=== PATIENT | female | born 1990 | race Two or more races ===

== ENCOUNTER 2018-05-05 07:58 | Inpatient (IN) ==
[2018-05-05] MEDS ORDERED: Naloxone Inj 0.4 MG/ML Vial IV.PUSH PRN ×2 (08:40→13:08)
[2018-05-05] MEDS ORDERED: fentaNYL Citrate Inj 100 MCG/2 ML Ampul IV.PUSH PRN (08:40)
[2018-05-05] MEDS ORDERED: Sodium Chlor 0.9% Inj 500 ML IV.SIG PRN (08:40)
[2018-05-05] MEDS ORDERED: Oxytocin 30 Units/500ml Premix 30 UNITS/500 ML BAG IV.SIG ONE (08:40)
[2018-05-05] MEDS ORDERED: Sod Chloride 0.9% Inj 1,000 ML IV.CONT PRN (08:40)
--- NOTE | 2018-05-05 08:42 | ED ---
History of Present Illness Primary Care Physician: No Primary Care Physician Chief Complaint: Contraction History of Present Illness: 28-year-old who presents with contractions. She is a patient of Dr. Goldberg. She has been having contractions since 12 AM. Her water broke around 3 AM. She denies any vaginal bleeding. She reports that she is GBS negative. Her has been complicated by anemia in which she did require IV iron infusions weekly. Her last infusion was on Wednesday. OB history: section in 2011 likely due to arrest of labor. Patient reports that she got to 5 cm dilated and then needed to go to a . Past medical history: Anemia of Past surgical history: section in 2011 Medications: IV iron infusions, vitamin Allergies: No known drug allergies Family history: Grandmother with diabetes and hypertension Social history: Denies tobacco use, alcohol use, illicit drug use Weeks Gestation:: 39 Para: 1 : 2 - Inpatient Certification I certify that the inpatient services were ordered in accordance with Medicare regulations governing the order. This includes certification that hospital inpatient services are reasonable and necessary and in the case of services not specified as inpatient-only under 42 CFR 419.22(n), that they are appropriately provided as inpatient services in accordance to with the 2-midnight benchmark under 43 CFR 412.3(e) Review of Systems All other systems reviewed negative except as stated in HPI PMFSH - History History Provided By: Patient - Social History I have reviewed the patient's Social History: Yes - Travel History Recent Travel in the [place] Within the Last 8 Weeks: No Recent Travel Out of the Country Within the Last 8 Weeks: No Medications and Allergies Allergies Allergy/AdvReac Type Severity Reaction Status Date / Time No Known Allergies Allergy Verified 05/05/18 08:19 Home Medications Medication Instructions Recorded Confirmed Type vit,[id number] 1 tab PO DAILY 05/05/18 05/05/18 History [PNV 29-1] Exam Vital signs: Vital Signs 05/05/18 08:11 Temperature 98.9 F Pulse Rate 96 H Respiratory Rate 18 Blood Pressure 134/68 Intake & Output 05/04/18 05/05/18 05/05/18 18:59 06:59 18:59 Weight 191 kg Narrative: GENERAL: Well-nourished, well-developed patient, and distressed when maru. SKIN: Warm and dry. HEAD: Normocephalic and atraumatic. EYES: No scleral icterus. No injection or drainage. ENT: No nasal drainage noted. Mucous membranes pink. Airway patent. NECK: Supple, trachea midline. No JVD. CARDIOVASCULAR: Regular rate and rhythm without murmurs, gallops, or rubs. RESPIRATORY: Breath sounds equal bilaterally. No accessory muscle use. ABDOMEN/GI: Abdomen soft, non-tender, bowel sounds present, no rebound, no guarding Gravid to 39 weeks size Fundal Height: 39 GENITOURINARY: External Genitalia: intact and normal in appearance Cervix: Midline Dilatation: 5 Effacement: 80 Station: -2 Presentation: Vertex Membranes: Ruptured Uterine Contractions: Yes FHT's: Category: 1 Baseline: 140 Reactive: Yes Variability: Moderate Decels: None EXTREMITIES: No cyanosis or edema. BACK: Nontender without obvious deformity. No CVA tenderness. NEUROLOGICAL: Awake and alert. Motor and sensory grossly within normal limits. Five out of 5 muscle strength in all muscle groups. Normal speech. Results - Labs CBC & Chem 7: 05/05/18 08:20 Assessment and Plan - Diagnosis (1) Active labor Status: Acute - Plan 28-year-old who is in active labor. She desires . Patient's cervix is 5-6\80\-2 and heart rate is category 1. -Admit to labor and delivery -Anticipate vaginal delivery -Obtain records from Dr. Goldberg - Attending Attestation The exam, history, and the medical decision-making described in the above note were completed with the assistance of the resident physician. I reviewed and agree with the findings presented. I attest that I had a [id number] encounter with the patient on the same day, and personally performed and documented my assessment and findings in the medical record. Discharge Plan - Physicians Team Primary Care Provider: Primary Care Kane,Sarah Attending Provider: Gloria Goldsmith
[2018-05-05] MEDS ORDERED: Citric Acid/Sodium Citrate Liq 30 ML UDC PO SCH (08:45)
[2018-05-05 08:56] LABS: Baso % (Auto) 0.4 % (0.0-2.0); Hemoglobin 13.7 gm/dL (11.6-15.3); Lymph # (Auto) 1.3 th/mm3 (1.0-4.8); Lymph % (Auto) 11.7 % (9.0-44.0); Mean Corpuscular HGB Conc 34.1 % (32.0-36.0); Mean Corpuscular Hemoglobin 27.2 pg (27.0-34.0); Mean Corpuscular Volume 79.5 fL (80.0-100.0); Mono # (Auto) 0.3 th/mm3 (0.0-0.9); Mono % (Auto) 2.6 % (0.0-8.0); Neut # (Auto) 9.7 th/mm3 (1.8-7.7); Neut % (Auto) 85.3 % (16.0-70.0); Platelet Count 192 th/mm3 (150-450); Red Blood Count 5.03 mil/mm3 (4.00-5.30); Red Cell Distribution Width 22.1 % (11.6-17.2); White Blood Count 11.4 th/mm3 (4.0-11.0)
--- NOTE | 2018-05-05 09:31 | P.HPOB ---
*LIVE* [facility] OB - History and Physical Patient Name: Kelsie Rashid Date of : 89 Patient Status: Inpatient Attending Provider: Gloria Goldsmith Date: 05/05/18 08:41 Initialization Date: 05/05/18 08:41 History of Present Illness Primary Care Physician: No Primary Care Physician Chief Complaint: Contraction History of Present Illness: 28-year-old who presents with contractions. She is a patient of Dr. Goldberg. She has been having contractions since 12 AM. Her water broke around 3 AM. She denies any vaginal bleeding. She reports that she is GBS negative. Her has been complicated by anemia in which she did require IV iron infusions weekly. Her last infusion was on Wednesday. OB history: section in 2011 likely due to arrest of labor. Patient reports that she got to 5 cm dilated and then needed to go to a . Past medical history: Anemia of Past surgical history: section in 2011 Medications: IV iron infusions, vitamin Allergies: No known drug allergies Family history: Grandmother with diabetes and hypertension Social history: Denies tobacco use, alcohol use, illicit drug use Weeks Gestation:: 39 Para: 1 : 2 - Inpatient Certification I certify that the inpatient services were ordered in accordance with Medicare regulations governing the order. This includes certification that hospital inpatient services are reasonable and necessary and in the case of services not specified as inpatient-only under 42 CFR 419.22(n), that they are appropriately provided as inpatient services in accordance to with the 2-midnight benchmark under 43 CFR 412.3(e) Review of Systems All other systems reviewed negative except as stated in HPI PMFSH - History History Provided By: Patient - Social History I have reviewed the patient's Social History: Yes - Travel History Recent Travel in the [place] Within the Last 8 Weeks: No Recent Travel Out of the Country Within the Last 8 Weeks: No Medications and Allergies Allergies Allergy/AdvReac Type Severity Reaction Status Date / Time No Known Allergies Allergy Verified 05/05/18 08:19 Home Medications Medication Instructions Recorded Confirmed Type vit,[id number] 1 tab PO DAILY 05/05/18 05/05/18 History [PNV 29-1] Exam Vital signs: Vital Signs 05/05/18 08:11 Temperature 98.9 F Pulse Rate 96 H Respiratory Rate 18 Blood Pressure 134/68 Intake & Output 05/04/18 05/05/18 05/05/18 18:59 06:59 18:59 Weight 191 kg Narrative: GENERAL: Well-nourished, well-developed patient, and distressed when maru. SKIN: Warm and dry. HEAD: Normocephalic and atraumatic. EYES: No scleral icterus. No injection or drainage. ENT: No nasal drainage noted. Mucous membranes pink. Airway patent. NECK: Supple, trachea midline. No JVD. CARDIOVASCULAR: Regular rate and rhythm without murmurs, gallops, or rubs. RESPIRATORY: Breath sounds equal bilaterally. No accessory muscle use. ABDOMEN/GI: Abdomen soft, non-tender, bowel sounds present, no rebound, no guarding Gravid to 39 weeks size Fundal Height: 39 GENITOURINARY: External Genitalia: intact and normal in appearance Cervix: Midline Dilatation: 5 Effacement: 80 Station: -2 Presentation: Vertex Membranes: Ruptured Uterine Contractions: Yes FHT's: Category: 1 Baseline: 140 Reactive: Yes Variability: Moderate Decels: None EXTREMITIES: No cyanosis or edema. BACK: Nontender without obvious deformity. No CVA tenderness. NEUROLOGICAL: Awake and alert. Motor and sensory grossly within normal limits. Five out of 5 muscle strength in all muscle groups. Normal speech. Results - Labs CBC & Chem 7: 05/05/18 08:20 Assessment and Plan - Diagnosis (1) Active labor Status: Acute - Plan 28-year-old who is in active labor. She desires . Patient's cervix is 5-6\80\-2 and heart rate is category 1. -Admit to labor and delivery -Anticipate vaginal delivery -Obtain records from Dr. Goldberg Attending Attestation The exam, history, and the medical decision-making described in the above note were completed with the assistance of the resident physician. I reviewed and agree with the findings presented. I attest that I had a [id number] encounter with the patient on the same day, and personally performed and documented my assessment and findings in the medical record. Pt seen and examined. Agree with resident note. Discharge Plan - Physicians Team Primary Care Provider: Primary Care Sarah Middleton Attending Provider: Gloria Goldsmith
[2018-05-05] MEDS: fentaNYL Citrate Inj 100 MCG/2 ML Ampul IV.PUSH PRN ×2 (09:41→10:59)
[2018-05-05 09:54] LABS: Bacteria,Urine Moderate /hpf; Bilirubin,Urine Negative (Negative); Clarity,Urine Hazy (Clear); Color,Urine Amber (Yellw/Straw); Glucose,Urine (UA) Negative (Negative); Leukocyte Esterase,Urine Trace (Negative); Mucus,Urine Few /lpf (Occasional); Nitrite,Urine Negative (Negative); Specific Gravity,Urine 1.024 (1.002-1.035); Squamous Epithelial Cell,Urine 3 /hpf (0-5)
[2018-05-05 09:56] LABS: Urobilinogen,Urine 0.2 mg/dL (Less than 2)
[2018-05-05 09:58] LABS: Ictotest,Urine Negative (Negative)
[2018-05-05] MEDS ORDERED: Benzocaine 20% Top Spray 60 ML Can TOPICAL PRN (13:08)
[2018-05-05] MEDS ORDERED: Witch Hazel 50%/Glyderin 12.5% 40 Pad Jar RECTAL PRN (13:08)
[2018-05-05] MEDS ORDERED: Oxytocin 30 Units/500ml Premix 30 UNITS/500 ML BAG IV.CONT PRN (13:08)
[2018-05-05] MEDS ORDERED: Bisacodyl 10 MG Supp RECTAL PRN (13:08)
--- NOTE | 2018-05-05 13:20 | P.OBDELI ---
Weeks Gestation: 39 Patient Started Active Labor: Yes Anesthesia: None Episiotomy: none Vaginal Delivery: Normal, Presentation: Occiput anterior Nuchal Cord: x1 Delayed Cord Clamping (45 sec): Yes Placenta: Spontaneous delivery, Intact, 3 vessel cord Laceration: None Estimated blood loss (mL): 200 Infant: Female Infant Female A Delivery Date: 05/05/18 Infant Delivery Time: 12:41 Weight: 3.295 kg score (1 min): 8 score (5 min): 9
[2018-05-05] MEDS: Acetaminophen 325 MG Tablet PO PRN (13:54)
[2018-05-05] MEDS ORDERED: Measles/Mumps/Rubella Vaccine Inj 0.5 ML Vial SQ ONE (16:00)
[2018-05-05] MEDS ORDERED: Diphtheria/Tetanus/Pertussis Vaccine Inj 0.5 ML Syringe IM ONE (16:00)
[2018-05-05] MEDS: Senna/Docusate Sodium 8.6/50 MG Tablet PO SCH (21:00)
[2018-05-05] MEDS ORDERED: Zolpidem Tartrate 5 MG Tablet PO PRN (21:00)
[2018-05-06] MEDS: Acetaminophen 325 MG Tablet PO PRN ×3 (03:49→18:37)
--- NOTE | 2018-05-06 08:03 | P.PNOB ---
Objective Vital Signs/I&O: Vital Signs 05/05/18 08:11 05/05/18 09:15 05/05/18 09:31 Temperature 98.9 F Pulse Rate 96 H 99 H Respiratory Rate 18 17 Blood Pressure 134/68 131/72 05/05/18 09:45 05/05/18 10:45 05/05/18 11:00 Temperature 98.7 F Pulse Rate Respiratory Rate 19 18 19 Blood Pressure 05/05/18 11:04 05/05/18 12:00 05/05/18 13:00 Temperature Pulse Rate 84 Respiratory Rate 20 18 Blood Pressure 138/87 05/05/18 13:15 05/05/18 13:24 05/05/18 14:08 Temperature 98.8 F Pulse Rate 83 78 Respiratory Rate 16 18 Blood Pressure 111/61 106/51 L 05/05/18 15:00 05/05/18 20:00 Temperature 98.0 F 98.1 F Pulse Rate 79 81 Respiratory Rate 18 18 Blood Pressure 106/58 L 104/72 Intake & Output 05/05/18 05/06/18 05/06/18 18:59 06:59 18:59 Weight 191 kg Result Diagrams: 05/05/18 08:20 Objective Remarks: GENERAL: Well-nourished, well-developed patient. CARDIOVASCULAR: Regular rate and rhythm without murmurs, gallops, or rubs. RESPIRATORY: Breath sounds equal bilaterally. No accessory muscle use. ABDOMEN/GI: Abdomen soft, non-tender, bowel sounds present. Incision: Clean, dry and intact. Fundus: Firm, non-tender at umbilicus. GENITOURINARY: Light to moderate bleeding. EXTREMITIES: No cyanosis or edema, non-tender, without signs of DVT. Medications and IVs: Active Medications Acetaminophen (Tylenol) 650 mg PO Q4H PRN PRN Reason: PAIN SCALE 1 TO 2 Last Admin: 05/06/18 03:49 Dose: 650 mg Al Hydroxide/Mg Hydroxide (Milk Of [place]breann Liq) 30 ml PO Q12H PRN PRN Reason: Mild Constipation Benzocaine (Americaine 20% Top [place]) 1 spray TOPICAL Q4H PRN PRN Reason: For Perineum Discomfort Last Admin: 05/05/18 13:54 Dose: 1 spray Bisacodyl (Dulcolax Supp) 10 mg RECTAL DAILY PRN PRN Reason: SEVERE CONSITIPATION Citric Acid/Sodium Citrate (Sodium Citrate/Citric Acid Liq) 30 ml PO EARLY CHILDHOOD SERVICES COORDINATOR [facility] Stop: 05/09/18 08:44 Lactated Ringer's (Lr 1000 Ml Inj) 1,000 mls @ 3,000 mls/hr IV.SIG UNSCH PRN PRN Reason: compromise or epidural Lactated Ringer's (Lr 1000 Ml Inj) 1,000 mls @ 125 mls/hr IV.CONT .Q8H [facility] Last Admin: 05/05/18 17:38 Dose: Not Given Sodium Chloride (Ns Inj) 500 mls @ 1,000 mls/hr IV.SIG UNSCH PRN PRN Reason: SEE LABEL COMMENTS Sodium Chloride (Ns Inj) 1,000 mls @ 100 mls/hr IV.CONT .Q10H PRN PRN Reason: SEE LABEL COMMENTS Oxytocin (Pitocin 30 Units/Ns 500 Ml Premix) 30 units in 500 mls @ 100 mls/hr IV.CONT UNSCH PRN PRN Reason: Heavy bleeding Ibuprofen (Motrin) 800 mg PO Q8H PRN PRN Reason: For Cramping Last Admin: 05/05/18 13:54 Dose: 800 mg Lactulose (Lactulose Liq) 30 ml PO DAILY PRN PRN Reason: SEVERE CONSITIPATION Lidocaine HCl (Xylocaine 1% Inj) 0.1 ml I-DERMAL PRN PRN PRN Reason: For IV start Stop: 05/08/18 08:39 Lidocaine HCl (Xylocaine 1% Inj) 10 ml INFILTRATN PRN PRN PRN Reason: For episiotomy repair Stop: 05/07/18 08:39 Last Admin: 05/05/18 13:00 Dose: 10 ml Mineral Oil (Muri-Lube Oil) 10 ml TOPICAL PRN PRN PRN Reason: PRN perineal massage Naloxone HCl (Narcan Inj) 0.1 mg IV.PUSH Q2M PRN PRN Reason: for opiate reversal Ondansetron HCl (Zofran Odt) 4 mg PO Q6H PRN PRN Reason: NAUSEA OR VOMITING Oxycodone/Acetaminophen (Percocet 5/325 Mg) 1 tab PO Q4H PRN PRN Reason: Pain Scale 3 To 10 Senna/Docusate Sodium (Sarah-Colace) 1 tab PO BID [facility] Last Admin: 05/05/18 21:00 Dose: Not Given Sennosides (Senokot) 17.2 mg PO Q12H PRN PRN Reason: Moderate Constipation Sodium Chloride (Ns Flush) 2 ml IV.FLUSH BID [facility] Last Admin: 05/06/18 07:44 Dose: Not Given Sodium Chloride (Ns Flush) 2 ml IV.FLUSH PRN PRN PRN Reason: FLUSH AFTER USING IV ACCESS Witch Marcie/Glycerin (Tucks Pads) 1 applicatio RECTAL QID PRN PRN Reason: HEMORRHOIDS Zolpidem Tartrate (Ambien) 5 mg PO HS PRN PRN Reason: SLEEP Assessment and Plan - Diagnosis (1) Active labor Status: Acute - Plan 28-year-old who is in active labor. She desires . Patient's cervix is 5-6\80\-2 and heart rate is category 1. -Admit to labor and delivery -Anticipate vaginal delivery -Obtain records from Dr. Goldberg
--- NOTE | 2018-05-06 08:04 | P.PNOB ---
Subjective Post day: 1 Interval history: Patient is a 28 year-old G 2 P 2 delivered at 39 weeks weeks. Patient is day 1 after spontaneous vaginal delivery. Patient's pain is well- controlled. Patient reports eating and drinking without any nausea or vomiting. Patient reports minimal bleeding. Patient has passed gas but no bowel movements. Patient is walking without lower extremity pain or shortness of breath. Patient reports desire for contraception and breast-feeding. Objective Vital Signs/I&O: Vital Signs 05/05/18 08:11 05/05/18 09:15 05/05/18 09:31 Temperature 98.9 F Pulse Rate 96 H 99 H Respiratory Rate 18 17 Blood Pressure 134/68 131/72 05/05/18 09:45 05/05/18 10:45 05/05/18 11:00 Temperature 98.7 F Pulse Rate Respiratory Rate 19 18 19 Blood Pressure 05/05/18 11:04 05/05/18 12:00 05/05/18 13:00 Temperature Pulse Rate 84 Respiratory Rate 20 18 Blood Pressure 138/87 05/05/18 13:15 05/05/18 13:24 05/05/18 14:08 Temperature 98.8 F Pulse Rate 83 78 Respiratory Rate 16 18 Blood Pressure 111/61 106/51 L 05/05/18 15:00 05/05/18 20:00 Temperature 98.0 F 98.1 F Pulse Rate 79 81 Respiratory Rate 18 18 Blood Pressure 106/58 L 104/72 Intake & Output 05/05/18 05/06/18 05/06/18 18:59 06:59 18:59 Weight 191 kg Result Diagrams: 05/05/18 08:20 Objective Remarks: GENERAL: Well-nourished, well-developed patient. CARDIOVASCULAR: Regular rate and rhythm without murmurs, gallops, or rubs. RESPIRATORY: Breath sounds equal bilaterally. No accessory muscle use. ABDOMEN/GI: Abdomen soft, non-tender. Fundus: Firm, non-tender at umbilicus. GENITOURINARY: Light to moderate bleeding. EXTREMITIES: No cyanosis or edema, non-tender, without signs of DVT. Medications and IVs: Active Medications Acetaminophen (Tylenol) 650 mg PO Q4H PRN PRN Reason: PAIN SCALE 1 TO 2 Last Admin: 05/06/18 03:49 Dose: 650 mg Al Hydroxide/Mg Hydroxide (Milk Of Magnesia Liq) 30 ml PO Q12H PRN PRN Reason: Mild Constipation Benzocaine (Americaine 20% Top [place]) 1 spray TOPICAL Q4H PRN PRN Reason: For Perineum Discomfort Last Admin: 05/05/18 13:54 Dose: 1 spray Bisacodyl (Dulcolax Supp) 10 mg RECTAL DAILY PRN PRN Reason: SEVERE CONSITIPATION Citric Acid/Sodium Citrate (Sodium Citrate/Citric Acid Liq) 30 ml PO SENIOR REPORT DEVELOPER [facility] Stop: 05/09/18 08:44 Lactated Ringer's (Lr 1000 Ml Inj) 1,000 mls @ 3,000 mls/hr IV.SIG UNSCH PRN PRN Reason: compromise or epidural Lactated Ringer's (Lr 1000 Ml Inj) 1,000 mls @ 125 mls/hr IV.CONT .Q8H [facility] Last Admin: 05/05/18 17:38 Dose: Not Given Sodium Chloride (Ns Inj) 500 mls @ 1,000 mls/hr IV.SIG UNSCH PRN PRN Reason: SEE LABEL COMMENTS Sodium Chloride (Ns Inj) 1,000 mls @ 100 mls/hr IV.CONT .Q10H PRN PRN Reason: SEE LABEL COMMENTS Oxytocin (Pitocin 30 Units/Ns 500 Ml Premix) 30 units in 500 mls @ 100 mls/hr IV.CONT UNSCH PRN PRN Reason: Heavy bleeding Ibuprofen (Motrin) 800 mg PO Q8H PRN PRN Reason: For Cramping Last Admin: 05/05/18 13:54 Dose: 800 mg Lactulose (Lactulose Liq) 30 ml PO DAILY PRN PRN Reason: SEVERE CONSITIPATION Lidocaine HCl (Xylocaine 1% Inj) 0.1 ml I-DERMAL PRN PRN PRN Reason: For IV start Stop: 05/08/18 08:39 Lidocaine HCl (Xylocaine 1% Inj) 10 ml INFILTRATN PRN PRN PRN Reason: For episiotomy repair Stop: 05/07/18 08:39 Last Admin: 05/05/18 13:00 Dose: 10 ml Mineral Oil (Muri-Lube Oil) 10 ml TOPICAL PRN PRN PRN Reason: PRN perineal massage Naloxone HCl (Narcan Inj) 0.1 mg IV.PUSH Q2M PRN PRN Reason: for opiate reversal Ondansetron HCl (Zofran Odt) 4 mg PO Q6H PRN PRN Reason: NAUSEA OR VOMITING Oxycodone/Acetaminophen (Percocet 5/325 Mg) 1 tab PO Q4H PRN PRN Reason: Pain Scale 3 To 10 Senna/Docusate Sodium (Sarah-Colace) 1 tab PO BID [facility] Last Admin: 05/05/18 21:00 Dose: Not Given Sennosides (Senokot) 17.2 mg PO Q12H PRN PRN Reason: Moderate Constipation Sodium Chloride (Ns Flush) 2 ml IV.FLUSH BID [facility] Last Admin: 05/06/18 07:44 Dose: Not Given Sodium Chloride (Ns Flush) 2 ml IV.FLUSH PRN PRN PRN Reason: FLUSH AFTER USING IV ACCESS Witch Marcie/Glycerin (Tucks Pads) 1 applicatio RECTAL QID PRN PRN Reason: HEMORRHOIDS Zolpidem Tartrate (Ambien) 5 mg PO HS PRN PRN Reason: SLEEP Assessment and Plan - Diagnosis (1) Vaginal delivery Code(s): O80 - Encounter for full-term uncomplicated delivery Status: Acute - Plan Patient is a 28-year-old G 2 P 2 delivered at 39 weeks. Patient is day 1 after spontaneous vaginal delivery. Patient was counseled to do 6 weeks of pelvic rest. Patient was counseled to follow up in 6 weeks. Patient requested follow-up and contraception. --AF VSS --Continue routine care --Motrin and Percocet when necessary for pain --Encourage OOB --Pelvic rest for 6 weeks will need follow-up appointment at that time. --Contraception: Reports that she will use condoms but is still contemplating a pharmacological method --Anticipate discharge tomorrow Discussed with Dr. Collier
[2018-05-06] MEDS: Senna/Docusate Sodium 8.6/50 MG Tablet PO SCH (10:03)
[2018-05-06 20:55] VITALS: TEMP 98.3
[2018-05-07] MEDS: Acetaminophen 325 MG Tablet PO PRN (02:32)
[2018-05-07] MEDS: Senna/Docusate Sodium 8.6/50 MG Tablet PO SCH (02:32)
--- NOTE | 2018-05-07 06:33 | P.PNOB ---
Subjective Post day: 2 Interval history: Pt seen and examined this morning. day #2 AFVSS overnight. Pain is well controlled. Decreased lochia. Denies dysuria. No breast tenderness. She is feeding the baby via breast. Appetite good. No nausea or vomiting. Has had BM. Ambulating well. Denies calf pain or shortness of breath. Otherwise, she is doing well this morning and has no other concerns. Objective Vital Signs/I&O: Vital Signs 05/06/18 08:00 05/06/18 20:00 Temperature 97.8 F 98.3 F Pulse Rate 74 62 Respiratory Rate 7 L 18 Blood Pressure 113/67 122/68 Result Diagrams: 05/05/18 08:20 Objective Remarks: GENERAL: Well-nourished, well-developed patient. CARDIOVASCULAR: Regular rate and rhythm without murmurs, gallops, or rubs. RESPIRATORY: Breath sounds equal bilaterally. No accessory muscle use. ABDOMEN/GI: Abdomen soft, non-tender. Fundus: Firm, non-tender at umbilicus. GENITOURINARY: Light bleeding. EXTREMITIES: No cyanosis or edema, non-tender, without signs of DVT. Medications and IVs: Active Medications Acetaminophen (Tylenol) 650 mg PO Q4H PRN PRN Reason: PAIN SCALE 1 TO 2 Last Admin: 05/07/18 02:32 Dose: 650 mg Al Hydroxide/Mg Hydroxide (Milk Of Magnesia Liq) 30 ml PO Q12H PRN PRN Reason: Mild Constipation Benzocaine (Americaine 20% Top [place]) 1 spray TOPICAL Q4H PRN PRN Reason: For Perineum Discomfort Last Admin: 05/05/18 13:54 Dose: 1 spray Bisacodyl (Dulcolax Supp) 10 mg RECTAL DAILY PRN PRN Reason: SEVERE CONSITIPATION Citric Acid/Sodium Citrate (Sodium Citrate/Citric Acid Liq) 30 ml PO ELEMENTARY SPECIAL EDUCATION TEACHER [facility] Stop: 05/09/18 08:44 Lactated Ringer's (Lr 1000 Ml Inj) 1,000 mls @ 3,000 mls/hr IV.SIG UNSCH PRN PRN Reason: compromise or epidural Lactated Ringer's (Lr 1000 Ml Inj) 1,000 mls @ 125 mls/hr IV.CONT .Q8H [facility] Last Admin: 05/06/18 18:43 Dose: Not Given Sodium Chloride (Ns Inj) 500 mls @ 1,000 mls/hr IV.SIG UNSCH PRN PRN Reason: SEE LABEL COMMENTS Sodium Chloride (Ns Inj) 1,000 mls @ 100 mls/hr IV.CONT .Q10H PRN PRN Reason: SEE LABEL COMMENTS Oxytocin (Pitocin 30 Units/Ns 500 Ml Premix) 30 units in 500 mls @ 100 mls/hr IV.CONT UNSCH PRN PRN Reason: Heavy bleeding Ibuprofen (Motrin) 800 mg PO Q8H PRN PRN Reason: For Cramping Last Admin: 05/07/18 02:33 Dose: 800 mg Lactulose (Lactulose Liq) 30 ml PO DAILY PRN PRN Reason: SEVERE CONSITIPATION Lidocaine HCl (Xylocaine 1% Inj) 0.1 ml I-DERMAL PRN PRN PRN Reason: For IV start Stop: 05/08/18 08:39 Lidocaine HCl (Xylocaine 1% Inj) 10 ml INFILTRATN PRN PRN PRN Reason: For episiotomy repair Stop: 05/07/18 08:39 Last Admin: 05/05/18 13:00 Dose: 10 ml Mineral Oil (Muri-Lube Oil) 10 ml TOPICAL PRN PRN PRN Reason: PRN perineal massage Naloxone HCl (Narcan Inj) 0.1 mg IV.PUSH Q2M PRN PRN Reason: for opiate reversal Ondansetron HCl (Zofran Odt) 4 mg PO Q6H PRN PRN Reason: NAUSEA OR VOMITING Oxycodone/Acetaminophen (Percocet 5/325 Mg) 1 tab PO Q4H PRN PRN Reason: Pain Scale 3 To 10 Senna/Docusate Sodium (Sarah-Colace) 1 tab PO BID [facility] Last Admin: 05/07/18 02:32 Dose: 1 tab Sennosides (Senokot) 17.2 mg PO Q12H PRN PRN Reason: Moderate Constipation Sodium Chloride (Ns Flush) 2 ml IV.FLUSH BID [facility] Last Admin: 05/07/18 02:49 Dose: Not Given Sodium Chloride (Ns Flush) 2 ml IV.FLUSH PRN PRN PRN Reason: FLUSH AFTER USING IV ACCESS Witch Marcie/Glycerin (Tucks Pads) 1 applicatio RECTAL QID PRN PRN Reason: HEMORRHOIDS Zolpidem Tartrate (Ambien) 5 mg PO HS PRN PRN Reason: SLEEP Assessment and Plan - Diagnosis (1) Vaginal delivery Code(s): O80 - Encounter for full-term uncomplicated delivery Status: Acute - Plan Patient is a 28-year-old G 2 P 2 delivered at 39 weeks. Patient is day 2 after spontaneous vaginal delivery. --AF VSS --Continue routine care --Motrin when necessary for pain --Encourage OOB --Pelvic rest for 6 weeks will need follow-up appointment at that time. --Contraception: Reports that she will use condoms --Anticipate discharge today Discussed with Dr. Hopkins The exam, history, and the medical decision-making described in the above note were completed with the assistance of the resident physician. I reviewed and agree with the findings presented. I attest that I had a [id number] encounter with the patient on the same day, and personally performed and documented my assessment and findings in the medical record.
[2018-05-07 08:13] VITALS: BP 103/65; PULSE 70; RESP 20
== END 2018-05-07 13:30 | disposition home or self-care (01) | DRG 807 ==
LOC: HOBED 07:58 → H2E 08:22 → H1EA 14:51
PROVIDERS: ADMIT Obstetrics & Gynecology; ATTEND Obstetrics & Gynecology
CPT/HCPCS: 59025; 81001; 83518; 84112; 85025; 86900; 86901; 87086; 99285; J2590; J3010; J7120